=== PATIENT | male | born 1955 | race African-American/Black ===

== ENCOUNTER 2021-08-07 19:11 | Inpatient (IN) | payer MEDICARE, OTHER ==
[2021-08-07 21:28] LABS: Appearance,Urine Clear (Clear); Bilirubin,Urine Negative (Negative); Blood,Urine Negative (Negative); Color,Urine Yellow; Glucose,Urine (UA) Negative (Negative); Ketones,Urine Negative (Negative); Leukocyte Esterase,Urine Negative (Negative); Nitrite,Urine Negative (Negative); Protein,Urine Negative (Negative); Specific Gravity,Urine 1.018 (1.001-1.035); Urobilinogen,Urine <2.0 mg/dL (<2.0)
[2021-08-07] MEDS ORDERED: SODIUM CHLORIDE 0.9% 1,000 ML IV STA (21:43)
[2021-08-07 23:15] LABS: Basophils % (A) 1 %; Eosinophils # (A) 0.2 k/uL (0-0.7); Eosinophils % (A) 3 %; HGB 12.6 gm/dL (13.0-17.5); Lymphocytes # (A) 1.5 k/uL (1.0-4.8); Lymphocytes % (A) 28 %; MCH 29.9 pg (25.0-35.0); MCHC 31.5 g/dL (31.0-37.0); MCV 95.1 fL (80.0-100.0); Mean Platelet Volume 9.9; Monocytes # (A) 0.3 k/uL (0-1.0); Monocytes % (A) 6 %; Neutrophils # (A) 3.1 k/uL (1.3-7.7); Neutrophils % (A) 59 %; Platelet Count 138 k/uL (150-450); WBC 5.3 k/uL (3.8-10.6)
[2021-08-07 23:33] LABS: Albumin 4.2 g/dL (3.5-5.0); Calcium 9.7 mg/dL (8.4-10.2); Magnesium 2.3 mg/dL (1.6-2.3); Potassium 4.9 mmol/L (3.5-5.1); Total Bilirubin 0.9 mg/dL (0.2-1.3); Total Protein 7.5 g/dL (6.3-8.2)
--- NOTE | 2021-08-08 00:28 | ED ---
General Adult HPI - General Chief complaint: Dizziness Stated complaint: Dizziness Time Seen by Provider: 08/07/21 21:09 Source: patient Mode of arrival: EMS - History of Present Illness Initial comments: 66 year-old male patient presents for evaluation of dizziness and near passing out. 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 States today he was going up the stairs when he became very dizzy and nearly passed out. He denies any headache, blurred vision, double vision. Denies any nausea or vomiting. Denies chest pain or shortness of breath. Denies numbness, tingling, weakness to his extremities. Denies history of similar symptoms. States he does have history of hypertension that he has not had any blood pressure medication since arriving at the facility. Patient denies any recent rash, fever, chills, cough, abdominal pain, nausea, vomiting, diarrhea, constipation, back pain, hematuria, dysuria, urinary urgency, urinary frequency, or any other complaints. - Related Data Allergies Allergy/AdvReac Type Severity Reaction Status Date / Time No Known Allergies Allergy Verified 08/07/21 20:08 Review of Systems ROS Statement: Those systems with pertinent positive or pertinent negative responses have been documented in the HPI. ROS Other: All systems not noted in ROS Statement are negative. Past Medical History Past Medical History: Asthma, CVA/TIA, Hypertension History of Any Multi-Drug Resistant Organisms: None Reported Past Psychological History: No Psychological Hx Reported Smoking Status: Current every day smoker Past Alcohol Use History: Rare Past Drug Use History: Heroin General Exam General appearance: alert, in no apparent distress, other (This is a well- developed, well-nourished adult male patient in no acute distress.) Eye exam: Present: normal appearance, PERRL, EOMI. Absent: scleral icterus, conjunctival injection, periorbital swelling ENT exam: Present: normal exam, normal oropharynx, mucous membranes moist Respiratory exam: Present: normal lung sounds bilaterally. Absent: respiratory distress, wheezes, rales, rhonchi, stridor Cardiovascular Exam: Present: normal rhythm, bradycardia, normal heart sounds. Absent: systolic murmur, diastolic murmur, rubs, gallop, clicks GI/Abdominal exam: Present: soft, normal bowel sounds. Absent: distended, tenderness, guarding, rebound, rigid Neurological exam: Present: alert, oriented X3, CN II-XII intact Psychiatric exam: Present: normal affect, normal mood Skin exam: Present: warm, dry, intact, normal color. Absent: rash Course Vital Signs 08/07/21 08/07/21 20:57 23:56 Temperature 97.0 F L Pulse Rate 53 L Pulse Rate [ 54 L Lace Weaver ] Respiratory 16 16 Rate Blood Pressure 97/65 Blood Pressure 142/93 [Left Arm Sitting] Blood Pressure 109/75 [Left Arm Standing] Blood Pressure 156/99 [Left Arm Supine] O2 Sat by Pulse 94 L Oximetry EKG Findings - EKG Comments: EKG Findings:: EKG obtained at 2206 is markedly sinus bradycardia with a ventricular to 49, NH interval 194, QRS duration 88, QT 516, QTc 466. No evidence of ST elevation or depression. Medical Decision Making - Medical Decision Making 66-year-old male patient presents to the emergency department today for evaluation of dizziness with near syncope. Parietal vital signs reveal bradycardia and hypotension. Physical examination is unremarkable. He is neurologically intact with no focal deficits. Labs reviewed and did reveal mildly decreased hemoglobin, CO2 32, creatinine 1.31. EKG showed marked sinus bradycardia. He did maintain heart rates in the high 40s low 50s well-healed. He'll be admitted for symptomatic bradycardia further evaluation and monitoring. Cardiology will be consulted. Case discussed with my attending Dr. Ruiz. - Lab Data Result diagrams: 08/07/21 23:04 08/07/21 23:04 Lab Results 08/07/21 08/07/21 08/07/21 Range/Units 20:32 23:04 23:04 WBC 5.3 (3.8-10.6) k/uL RBC 4.20 L (4.30-5.90) m/uL Hgb 12.6 L (13.0-17.5) gm/dL Hct 40.0 (39.0-53.0) % MCV 95.1 (80.0-100.0) fL MCH 29.9 (25.0-35.0) pg MCHC 31.5 (31.0-37.0) g/dL RDW 12.0 (11.5-15.5) % Plt Count 138 L (150-450) k/uL MPV 9.9 Neutrophils % 59 % Lymphocytes % 28 % Monocytes % 6 % Eosinophils % 3 % Basophils % 1 % Neutrophils # 3.1 (1.3-7.7) k/uL Lymphocytes # 1.5 (1.0-4.8) k/uL Monocytes # 0.3 (0-1.0) k/uL Eosinophils # 0.2 (0-0.7) k/uL Basophils # 0.0 (0-0.2) k/uL Sodium 138 (137-145) mmol/L Potassium 4.9 (3.5-5.1) mmol/L Chloride 100 (98-107) mmol/L Carbon Dioxide 32 H (22-30) mmol/L Anion Gap 6 mmol/L BUN 20 (9-20) mg/dL Creatinine 1.31 H (0.66-1.25) mg/dL Est GFR (CKD-EPI)AfAm 65 (>60 ml/min/1.73 sqM) Est GFR (CKD-EPI)NonAf 56 (>60 ml/min/1.73 sqM) Glucose 93 (74-99) mg/dL Plasma Lactic Acid Sanjay (0.7-2.0) mmol/L Calcium 9.7 (8.4-10.2) mg/dL Magnesium 2.3 (1.6-2.3) mg/dL Total Bilirubin 0.9 (0.2-1.3) mg/dL AST 41 (17-59) U/L ALT 39 (4-49) U/L Alkaline Phosphatase 65 (38-126) U/L Troponin I (0.000-0.034) ng/mL Total Protein 7.5 (6.3-8.2) g/dL Albumin 4.2 (3.5-5.0) g/dL Urine Color Yellow Urine Appearance Clear (Clear) Urine pH 6.0 (5.0-8.0) Ur Specific [place] 1.018 (1.001-1.035) Urine Protein Negative (Negative) Urine Glucose (UA) Negative (Negative) Urine Ketones Negative (Negative) Urine Blood Negative (Negative) Urine Nitrite Negative (Negative) Urine Bilirubin Negative (Negative) Urine Urobilinogen <2.0 (<2.0) mg/dL Ur Leukocyte Esterase Negative (Negative) 08/07/21 08/07/21 Range/Units 23:04 23:04 WBC (3.8-10.6) k/uL RBC (4.30-5.90) m/uL Hgb (13.0-17.5) gm/dL Hct (39.0-53.0) % MCV (80.0-100.0) fL MCH (25.0-35.0) pg MCHC (31.0-37.0) g/dL RDW (11.5-15.5) % Plt Count (150-450) k/uL MPV Neutrophils % % Lymphocytes % % Monocytes % % Eosinophils % % Basophils % % Neutrophils # (1.3-7.7) k/uL Lymphocytes # (1.0-4.8) k/uL Monocytes # (0-1.0) k/uL Eosinophils # (0-0.7) k/uL Basophils # (0-0.2) k/uL Sodium (137-145) mmol/L Potassium (3.5-5.1) mmol/L Chloride (98-107) mmol/L Carbon Dioxide (22-30) mmol/L Anion Gap mmol/L BUN (9-20) mg/dL Creatinine (0.66-1.25) mg/dL Est GFR (CKD-EPI)AfAm (>60 ml/min/1.73 sqM) Est GFR (CKD-EPI)NonAf (>60 ml/min/1.73 sqM) Glucose (74-99) mg/dL Plasma Lactic Acid Sanjay 1.4 (0.7-2.0) mmol/L Calcium (8.4-10.2) mg/dL Magnesium (1.6-2.3) mg/dL Total Bilirubin (0.2-1.3) mg/dL AST (17-59) U/L ALT (4-49) U/L Alkaline Phosphatase (38-126) U/L Troponin I <0.012 (0.000-0.034) ng/mL Total Protein (6.3-8.2) g/dL Albumin (3.5-5.0) g/dL Urine Color Urine Appearance (Clear) Urine pH (5.0-8.0) Ur Specific [place] (1.001-1.035) Urine Protein (Negative) Urine Glucose (UA) (Negative) Urine Ketones (Negative) Urine Blood (Negative) Urine Nitrite (Negative) Urine Bilirubin (Negative) Urine Urobilinogen (<2.0) mg/dL Ur Leukocyte Esterase (Negative) Disposition Clinical Impression: Symptomatic bradycardia, Near syncope Disposition: ADMITTED IP TO THIS [facility] Condition: Serious Referrals: None,Stated [Primary Care Provider] - 1-2 days Decision to Admit Reason: Admit from EC Decision Date: 08/08/21 Decision Time: 00:40
[2021-08-08] MEDS ORDERED: NALOXONE 0.4 MG/ML 1 ML VIAL IV PRN (00:38)
--- NOTE | 2021-08-08 09:22 | XR ---
EXAMINATION TYPE: XR chest 2V DATE OF EXAM: 08/08/2021 COMPARISON: None HISTORY: Dizziness TECHNIQUE: Frontal and lateral views of the chest are obtained. FINDINGS: There is no focal air space opacity, pleural effusion, or pneumothorax seen. The cardiac silhouette size is within normal limits. The osseous structures are intact. IMPRESSION: No acute cardiopulmonary process.
[2021-08-08] MEDS ORDERED: LORazepam 2 MG/ML INJ IV PRN ×3 (10:09)
[2021-08-08] MEDS: HEPARIN SODIUM,PORCINE/PF 5,000 UNIT/0.5 ML SYRINGE SQ SCH ×2 (10:21→20:40)
[2021-08-08] MEDS: THIAMINE 100 MG TAB PO SCH (10:21)
[2021-08-08] MEDS: FAMOTIDINE 20 MG/2 ML VIAL IV SCH ×2 (10:22→20:14)
[2021-08-08] MEDS: NICOTINE 14MG/24HR PATCH TRANSDERM SCH (10:22)
[2021-08-08] MEDS: SODIUM CHLORIDE 0.9% 1,000 ML IV SCH ×2 (10:22→21:56)
[2021-08-08] MEDS ORDERED: DOCUSATE 100 MG CAP PO PRN (13:38)
--- NOTE | 2021-08-08 13:40 | P.HPIM ---
History of Present Illness This is a pleasant 66 years old male with past medical history of Asthma, CVA/TIA, Hypertension Yesterday after he woke up trying to get to the restroom he felt dizzy about the passing out, no sensation of room spinning. No syncope. No chest pain or dyspnea. However patient complaining of from cough and phlegm which is green-yellow in color for several months now. Also he is complaining of from constipation. He is voiding more frequently but denies dysuria. Also is complaining of from headache 8/10 for the last 2 days, it is frontal headache. Associated with the total weakness in the left upper extremity for the last 2 months. Also patient has history of stroke Patient smokes about 3 cigarettes per day, used to smoke more but is trying to cut down. Patient is counseled to quit and he agrees. He drinks about 6 packs of beer every day as he states. Also he inject her when in his right forearm last time was about 16-17 days ago. Vitals showing bradycardia with heart rate 48-57. Blood pressure is 139/87 however as Lei understanding down to 190/75. Labs show an unremarkable CBC, BMP and liver enzymes and troponin except for mildly elevated creatinine at 1.3. Urine analysis is not suspicious for infection and coronavirus not detected. EKG showing marked bradycardia at [address]-T changes and QTC is 466. chest x-ray: No acute process Review of Systems CONSTITUTIONAL: No fever, no malaise, no fatigue. HEENT: No recent visual problems or hearing problems. Denied any sore throat. CARDIOVASCULAR: No orthopnea, PND, no palpitations, no syncope. PULMONARY: No shortness of breath, no cough, no hemoptysis. GASTROINTESTINAL: No diarrhea, no nausea, no vomiting, no abdominal pain. Normoactive bowel sounds. NEUROLOGICAL: No headaches, no weakness, no numbness. HEMATOLOGICAL: Denies any bleeding or petechiae. GENITOURINARY: Denies any burning micturition, frequency, or urgency. MUSCULOSKELETAL/RHEUMATOLOGICAL: Denies any joint pain, swelling, or any muscle pain. ENDOCRINE: Denies any polyuria or polydipsia. Past Medical History Past Medical History: Asthma, CVA/TIA, Hypertension History of Any Multi-Drug Resistant Organisms: None Reported Past Psychological History: No Psychological Hx Reported Smoking Status: Current every day smoker Past Alcohol Use History: Rare Past Drug Use History: Heroin Medications and Allergies Home Medications Medication Instructions Recorded Confirmed Type Docusate [Colace] 100 mg PO BID PRN 08/08/21 08/08/21 History Lidocaine 5% Cream 1 applic TOPICAL BID PRN 08/08/21 08/08/21 History Naloxone HCl [Narcan] 4 mg NASAL ONCE PRN 08/08/21 08/08/21 History Naproxen 500 mg PO BID PRN 08/08/21 08/08/21 History oxyCODONE-APAP 10-325MG [Percocet 1 tab PO Q8HR PRN 08/08/21 08/08/21 History 10-325 mg] Allergies Allergy/AdvReac Type Severity Reaction Status Date / Time No Known Allergies Allergy Verified 08/08/21 09:35 Physical Exam Vitals: Vital Signs Temp Pulse Pulse Resp BP BP BP 08/08/21 04:50 57 L 18 139/87 08/08/21 01:19 48 L 08/07/21 23:56 54 L 16 142/93 109/75 08/07/21 20:57 97.0 F L 53 L 16 97/65 BP Pulse Ox 08/08/21 04:50 97 08/08/21 01:19 08/07/21 23:56 156/99 08/07/21 20:57 94 L Intake and Output 08/07/21 08/08/21 08/08/21 22:59 06:59 14:59 Other: Weight 70.307 kg GENERAL: The patient is alert and oriented x3, not in any acute distress. Well developed, well nourished. HEENT: Pupils are round and equally reacting to light. EOMI. No scleral icterus. No conjunctival pallor. Normocephalic, atraumatic. No pharyngeal erythema. No thyromegaly. CARDIOVASCULAR: S1 and S2 present. No murmurs, rubs, or gallops. PULMONARY: Chest is clear to auscultation, no wheezing or crackles. ABDOMEN: Soft, nontender, nondistended, normoactive bowel sounds. No palpable organomegaly. MUSCULOSKELETAL: No joint swelling or deformity. EXTREMITIES: No cyanosis, clubbing, or pedal edema. NEUROLOGICAL: Gross neurological examination did not reveal any focal deficits. SKIN: No rashes. No petechiae Results CBC & Chem 7: 08/07/21 23:04 08/07/21 23:04 Labs: Abnormal Lab Results - Last 24 Hours (Table) 08/07/21 08/07/21 Range/Units 23:04 23:04 RBC 4.20 L (4.30-5.90) m/uL Hgb 12.6 L (13.0-17.5) gm/dL Plt Count 138 L (150-450) k/uL Carbon Dioxide 32 H (22-30) mmol/L Creatinine 1.31 H (0.66-1.25) mg/dL Assessment and Plan Assessment: Symptomatic bradycardia with dizziness and heart rate dropped down to 40s and 50s. Presyncope secondary to postural hypotension Left upper extremity weakness for 2 months Acute kidney injury, most likely prerenal Dehydration Heroine abuse Alcohol abuse at-risk of alcohol withdrawal Nicotine dependence History of asthma, not an active issue History of hypertension History of CVA/TIA Plan: This is a pleasant 66 years old male who presents with bradycardia, postural hypotension and dizziness. Continue with IV fluids Monitor creatinine. Continue with telemetry. Cardiology consult Start the patient on CIWA protocol, thiamine, nicotine patch Check urine analysis Labs and medication were reviewed.. Continue same treatment. Continue with symptomatic treatment. Resume home medication. Monitor lytes and vitals. DVT and GI prophylaxis. Further recommendations depends on the clinical course of the patient DVT prophylaxis: Subcutaneous heparin GI Prophylaxis: Pepcid PT/OT: Pending Prognosis is guarded
[2021-08-08 14:12] LABS: Appearance,Urine Clear (Clear); Bilirubin,Urine Negative (Negative); Blood,Urine Negative (Negative); Color,Urine Light Yellow; Glucose,Urine (UA) Negative (Negative); Ketones,Urine Negative (Negative); Leukocyte Esterase,Urine Negative (Negative); Nitrite,Urine Negative (Negative); PH, Urine 6.5 (5.0-8.0); Protein,Urine Negative (Negative); Specific Gravity,Urine 1.008 (1.001-1.035); Urobilinogen,Urine <2.0 mg/dL (<2.0)
--- NOTE | 2021-08-08 15:51 | P.CRDCN ---
History of Present Illness History of present illness: HISTORY OF PRESENTING ILLNESS This is a pleasant 66-year-old with past medical history significant for Asthma, CVA, heroin abuse, tobacco abuse, reported hypertension however not on any medi cations who presents secondary to episode of lightheadedness. Patient apparently has been at rehab for heroin abuse and had been doing fairly well however yesterday started having an episode where he felt lightheaded and dizzy like he was given passout. He states episode lasted for an hour to and then slowly resolved. Today he states he feels fine. Initial workup showed bradycardia in the 40s to 50s. He denies any prior history of anything similar denies any history of syncope. Denies any chest pain, pressure or tightness. He has not had prior cardiac workup in the past. Initial EKG showed sinus bradycardia with a heart rate 49 bpm without any significant ST or T wave abnormalities. Blood work showed white blood cell count 5.3, hemoglobin 12.6, platelets 138, BUN 20, creatinine 1.3, troponin less than 0.012. Initial vital signs blood pressure 97/65 with a heart rate of 53 bpm. REVIEW OF SYSTEMS At the time of my exam: CONSTITUTIONAL: Denies fever or chills. CARDIOVASCULAR: Denies chest pain, shortness of breath, orthopnea, PND or palpitations. RESPIRATORY: Denies cough. GASTROINTESTINAL: Denies abdominal pain, diarrhea, constipation, nausea or vomiting. MUSCULOSKELETAL: Denies myalgias. NEUROLOGIC: Denies numbness, tingling or weakness. ENDOCRINE: Denies fatigue, weight change, polydipsia or polyurina. GENITOURINARY: Denies burning, hematuria or urgency with micturation. HEMATOLOGIC: Denies history of anemia or bleeding. PHYSICAL EXAMINATION Vital signs reviewed. CONSTITUTIONAL: No apparent distress. HEENT: Head is normocephalic. Pupils are equal, round. Sclerae anicteric. Mucous membranes of the mouth are moist. No JVD. No carotid bruit. CHEST EXAMINATION: Lungs are clear to auscultation. No chest wall tenderness is noted on palpation or with deep breathing. +mild wheeze HEART EXAMINATION: Regular rate and rhythm. S1, S2 heard. No murmurs, gallops or rub. ABDOMEN: Soft, nontender. Positive bowel sounds. EXTREMITIES: 2+ peripheral pulses, no lower extremity edema and no calf tenderness. NEUROLOGIC EXAMINATION: Patient is awake, alert and oriented x3. ASSESSMENT 1. Near syncope of unclear etiology, unclear is actually symptomatic from his sinus bradycardia 2. Sinus bradycardia 3. History of heroin abuse, last use 16-17 days. No stigmata or signs or symptoms of endocarditis 4. History of tobacco abuse 5. History of alcohol abuse 6. COPD 7. History of stroke PLAN Patient with a near syncopal episode however blood pressure somewhat borderline to begin with and may be more of a hypotension issue rather than related to bradycardia. He has been intermittently mildly bradycardic however no significant pauses noted. Check 2-D echo. Continue to monitor on telemetry for minimum of 24 hours. No current indication for permanent pacemaker especially in this gentleman with history of IV drug abuse. Further recommendations follow. Past Medical History Past Medical History: Asthma, CVA/TIA, Hypertension Additional Past Medical History / Comment(s): arthritis. History of Any Multi-Drug Resistant Organisms: None Reported Past Surgical History: No Surgical Hx Reported Past Anesthesia/Blood Transfusion Reactions: No Reported Reaction Past Psychological History: No Psychological Hx Reported Smoking Status: Current every day smoker Past Alcohol Use History: Rare Past Drug Use History: Heroin Medications and Allergies Home Medications Medication Instructions Recorded Confirmed Type Docusate [Colace] 100 mg PO BID PRN 08/08/21 08/08/21 History Lidocaine 5% Cream 1 applic TOPICAL BID PRN 08/08/21 08/08/21 History Naloxone HCl [Narcan] 4 mg NASAL ONCE PRN 08/08/21 08/08/21 History Naproxen 500 mg PO BID PRN 08/08/21 08/08/21 History oxyCODONE-APAP 10-325MG [Percocet 1 tab PO Q8HR PRN 08/08/21 08/08/21 History 10-325 mg] Allergies Allergy/AdvReac Type Severity Reaction Status Date / Time No Known Allergies Allergy Verified 08/08/21 09:35 Physical Exam Vitals: Vital Signs Temp Pulse Pulse Resp BP BP BP 08/08/21 04:50 57 L 18 139/87 08/08/21 01:19 48 L 08/07/21 23:56 54 L 16 142/93 109/75 08/07/21 20:57 97.0 F L 53 L 16 97/65 BP Pulse Ox 08/08/21 04:50 97 08/08/21 01:19 08/07/21 23:56 156/99 08/07/21 20:57 94 L Intake and Output 08/08/21 08/08/21 08/08/21 06:59 14:59 22:59 Intake Total 400 Output Total 450 Balance -50 Intake: Oral 400 Output: Urine 450 Other: Weight 70.307 kg Results 08/07/21 23:04 08/07/21 23:04 Cardiac Enzymes 08/07/21 08/07/21 Range/Units 23:04 23:04 AST 41 (17-59) U/L Troponin I <0.012 (0.000-0.034) ng/mL CBC 08/07/21 Range/Units 23:04 WBC 5.3 (3.8-10.6) k/uL RBC 4.20 L (4.30-5.90) m/uL Hgb 12.6 L (13.0-17.5) gm/dL Hct 40.0 (39.0-53.0) % Plt Count 138 L (150-450) k/uL Comprehensive Metabolic Panel 08/07/21 Range/Units 23:04 Sodium 138 (137-145) mmol/L Potassium 4.9 (3.5-5.1) mmol/L Chloride 100 (98-107) mmol/L Carbon Dioxide 32 H (22-30) mmol/L BUN 20 (9-20) mg/dL Creatinine 1.31 H (0.66-1.25) mg/dL Glucose 93 (74-99) mg/dL Calcium 9.7 (8.4-10.2) mg/dL AST 41 (17-59) U/L ALT 39 (4-49) U/L Alkaline Phosphatase 65 (38-126) U/L Total Protein 7.5 (6.3-8.2) g/dL Albumin 4.2 (3.5-5.0) g/dL Current Medications Generic Name Dose Route Start Last Admin Trade Name Freq PRN Reason Stop Dose Admin Docusate Sodium 100 mg 08/08/21 13:38 Docusate 100 Mg Cap PO BID PRN Constipation Famotidine 20 mg 08/08/21 09:00 08/08/21 10:22 Famotidine 20 Mg/2 Ml Vial IV 20 mg Q12HR SAGE Administration Heparin Sodium (Porcine) 5,000 unit 08/08/21 09:00 08/08/21 10:21 Heparin Sodium,Porcine/Pf 5,000 Unit/0.5 Ml Syringe SQ 5,000 unit Q12HR SAGE Administration Sodium Chloride 1,000 mls @ 75 mls/hr 08/08/21 08:45 08/08/21 10:22 Saline 0.9% IV 75 mls/hr .[id number] SAGE Administration Lorazepam 1 mg 08/08/21 10:09 Lorazepam 2 Mg/Ml Inj IV Q2HR PRN CIWA 8 or 9 Lorazepam 1 mg 08/08/21 10:09 Lorazepam 2 Mg/Ml Inj IV Q1HR PRN CIWA 10 to 15 Lorazepam 2 mg 08/08/21 10:09 Lorazepam 2 Mg/Ml Inj IV 08/10/21 10:09 Q10M PRN CIWA 16 or higher Naloxone HCl 0.2 mg 08/08/21 00:38 Naloxone 0.4 Mg/Ml 1 Ml Vial IV Q2M PRN Opioid Reversal Nicotine 1 patch 08/08/21 10:15 08/08/21 10:22 Nicotine 14mg/24hr Patch TRANSDERM 1 patch DAILY SAGE Administration Thiamine HCl 100 mg 08/08/21 10:15 08/08/21 10:21 Thiamine 100 Mg Tab PO 100 mg DAILY SAGE Administration Intake and Output 08/08/21 08/08/21 08/08/21 06:59 14:59 22:59 Intake Total 400 Output Total 450 Balance -50 Intake: Oral 400 Output: Urine 450 Other: Weight 70.307 kg Patient Weight 08/09/21 05:59 Weight 70.307 kg 08/07/21 23:04 08/07/21 23:04
--- NOTE | 2021-08-08 20:24 | P.CNNES ---
History of Present Illness Consult date: 08/08/21 Reason for Consult: left-sided weakness and dizziness History of Present Illness: The patient is a 66-year-old -[place] male who is seen in neurologic consultation on August 08, 2021, via telemedicine. History is obtained from the chart and from the patient. In reviewing the history and physical, the patient reportedly complained of left upper extremity weakness, present for a couple months. When trying to obtain a history of from the patient, he reports a sore feeling in his left leg. He says his leg has been sore for years. He also reports soreness in his right leg because of using it for the injecting of IV drugs. Patient describes his episode of dizziness that brought him into the hospital. This story is consistent with the history and physical and the cardiology consultation. The patient denies weakness in his upper extremities. He reports that prior to his symptoms beginning a couple days ago, he had no difficulty walking. The patient denies headache and chest pain. He does report shortness of breath. Patient denies neck pain and back pain. Patient denies difficulty with speech and swallowing. There is no change in vision. The patient does report having had a stroke, proximally 10-15 years ago. Past Medical History Past Medical History: Asthma, CVA/TIA, Hypertension Additional Past Medical History / Comment(s): arthritis. History of Any Multi-Drug Resistant Organisms: None Reported Past Surgical History: No Surgical Hx Reported Past Anesthesia/Blood Transfusion Reactions: No Reported Reaction Past Psychological History: No Psychological Hx Reported Smoking Status: Current every day smoker Past Alcohol Use History: Rare Past Drug Use History: Heroin Medications and Allergies Home Medications Medication Instructions Recorded Confirmed Type Docusate [Colace] 100 mg PO BID PRN 08/08/21 08/08/21 History Lidocaine 5% Cream 1 applic TOPICAL BID PRN 08/08/21 08/08/21 History Naloxone HCl [Narcan] 4 mg NASAL ONCE PRN 08/08/21 08/08/21 History Naproxen 500 mg PO BID PRN 08/08/21 08/08/21 History oxyCODONE-APAP 10-325MG [Percocet 1 tab PO Q8HR PRN 08/08/21 08/08/21 History 10-325 mg] Allergies Allergy/AdvReac Type Severity Reaction Status Date / Time No Known Allergies Allergy Verified 08/08/21 09:35 Physical Examination - Vital Signs Vital Signs: Vital Signs Temp Pulse Pulse Resp BP BP BP 08/08/21 04:50 57 L 18 139/87 08/08/21 01:19 48 L 08/07/21 23:56 54 L 16 142/93 109/75 08/07/21 20:57 97.0 F L 53 L 16 97/65 BP Pulse Ox 08/08/21 04:50 97 08/08/21 01:19 08/07/21 23:56 156/99 08/07/21 20:57 94 L Intake and Output 08/08/21 08/08/21 08/08/21 06:59 14:59 22:59 Intake Total 400 Output Total 450 Balance -50 Intake: Oral 400 Output: Urine 450 Other: Weight 70.307 kg Gen.: The patient is initially sitting on the edge of the gurney. He is well- nourished, well-developed and in no acute distress. He is able to move himself onto the gurney, for the neurological examination. HEENT: Head is atraumatic, normocephalic. Fundus not visualized. There is no scleral icterus. Mucous membranes are moist. Neck: Supple without carotid bruits Heart: Regular rate and rhythm Extremities: Without edema Neurological examination Mental status: The patient is awake, alert and oriented 3. His speech is clear. There is no dysarthria or aphasia. Cranial nerves: Pupils are equal at 2 mm and reactive. Visual cuevas are full to confrontation. Extraocular movements are intact. There is no nystagmus. Facial sensation is reportedly diminished in the right V2 distribution. There is no facial asymmetry. Hearing is grossly intact. Uvula and palate are midline. Shoulder shrug is symmetric. Tongue protrudes midline. Motor: Strength in the bilateral upper extremities is 5/5. Left hip flexor 4- /5. Right hip flexor 4/5, when reclining in the bed with legs outstretched. When seated on the edge of the bed, hip flexor strength is improved. While seated on the edge of the bed, hamstring strength is 5/5. Ankle plantar and dorsiflexors 5/5. Sensation: The patient reports a decrease in touch sensation to the right upper and lower extremities. Deep tendon reflexes: 2+/4+ at the bilateral brachioradialis reflexes. Biceps and patellar reflexes 1+/4+. Coordination: Finger to nose and rapid alternating movements are intact. Gait: Within normal limits. The patient's gait is steady there is no evidence of weakness of either extremity. The patient is observed to have decreased left arm swing. Results - Laboratory Findings CBC and BMP: 08/07/21 23:04 08/07/21 23:04 Abnormal Lab Findings: Abnormal Labs 08/07/21 08/07/21 23:04 23:04 RBC 4.20 L Hgb 12.6 L Plt Count 138 L Carbon Dioxide 32 H Creatinine 1.31 H Assessment and Plan Assessment: 1. Inconsistent history regarding weakness of the extremities. Neurological examination reveals bilateral, inconsistent, proximal lower extremity weakness, without pathologic reflexes or sensory level-? Validity of examination 2. Symptomatic bradycardia 3. Reported history of stroke Plan: 1. We will recheck neurological examination/strength testing tomorrow 2. If weakness continues for consider imaging of the thoracic/lumbar spines 3. Physical therapy evaluation for weakness Time with Patient: Greater than 30 (spent 40 minutes with patient via telemedicine)
[2021-08-09] MEDS ORDERED: diazePAM 2 MG TAB PO STA (09:49)
--- NOTE | 2021-08-09 09:53 | P.PN ---
Subjective This is a pleasant 66 years old male with past medical history of Asthma, CVA/TIA, Hypertension Yesterday after he woke up trying to get to the restroom he felt dizzy about the passing out, no sensation of room spinning. No syncope. No chest pain or dyspnea. However patient complaining of from cough and phlegm which is green-yellow in color for several months now. Also he is complaining of from constipation. He is voiding more frequently but denies dysuria. Also is complaining of from headache 8/10 for the last 2 days, it is frontal headache. Associated with the total weakness in the left upper extremity for the last 2 months. Also patient has history of stroke Patient smokes about 3 cigarettes per day, used to smoke more but is trying to cut down. Patient is counseled to quit and he agrees. He drinks about 6 packs of beer every day as he states. Also he inject her when in his right forearm last time was about 16-17 days ago. Vitals showing bradycardia with heart rate 48-57. Blood pressure is 139/87 however as Lei understanding down to 190/75. Labs show an unremarkable CBC, BMP and liver enzymes and troponin except for mildly elevated creatinine at 1.3. Urine analysis is not suspicious for infection and coronavirus not detected. EKG showing marked bradycardia at [address]-T changes and QTC is 466. chest x-ray: No acute process 08/09/2021 Patient with no more dizziness or vertigo this morning, his weakness in extremities feels better besides neurologist will reexamine him today. No sensory loss. No chest pain or nausea vomiting or diarrhea. However he is feeling generally weak and yawning a lot that he complains about it and he feels anxious most likely due to and related related to his heroine withdrawal. We'll give him 1 time dose of Valium. Also he is on CIWA protocol, however his escort is 0-1 yesterday. He is hemodynamically stable. Repeat creatinine of 1.3 yesterday is a still pending. Heart rate is better today 56-58 this morning. Echocardiogram is still pending. Patient remains on thiamine, also he should be on normal saline but it wasn't running this morning and I informed the nurse to restarted. Also discussed with the bedside nurse to recheck his orthostatic vitals which is pending as well. Patient has been evaluated by neurologist with a going to follow up with him today and reexamine him to make sure he has no more weakness in his extremities. Impregnating Machine Operator recommended patient is not a good candidate for pacemaker since his heroine abuse or however his symptoms improving as well as his heart rate. Objective - Vital Signs Vital signs: Vital Signs Temp 97.9 F 08/09/21 08:00 Pulse 58 L 08/09/21 08:00 Resp 18 08/09/21 08:00 BP 145/84 08/09/21 08:00 Pulse Ox 97 08/09/21 08:00 Intake & Output 08/08/21 08/09/21 08/09/21 19:59 06:59 18:59 Intake Total 360 Output Total Balance 360 Weight Intake: Oral 360 Output: Urine Other: Voiding Method # Voids - Exam GENERAL: The patient is alert and oriented x3, not in any acute distress. Well developed, well nourished. HEENT: Pupils are round and equally reacting to light. EOMI. No scleral icterus. No conjunctival pallor. Normocephalic, atraumatic. No pharyngeal erythema. No thyromegaly. CARDIOVASCULAR: S1 and S2 present. No murmurs, rubs, or gallops. PULMONARY: Chest is clear to auscultation, no wheezing or crackles. ABDOMEN: Soft, nontender, nondistended, normoactive bowel sounds. No palpable organomegaly. MUSCULOSKELETAL: No joint swelling or deformity. EXTREMITIES: No cyanosis, clubbing, or pedal edema. NEUROLOGICAL: Gross neurological examination did not reveal any focal deficits. SKIN: No rashes. no petechiae. - Labs CBC & Chem 7: 08/07/21 23:04 08/07/21 23:04 Assessment and Plan Assessment: Symptomatic bradycardia with dizziness and heart rate dropped down to 40s and 50s. Presyncope secondary to postural hypotension Left upper extremity weakness for 2 months. Improvement Acute kidney injury, most likely prerenal Dehydration Heroine abuse Alcohol abuse at-risk of alcohol withdrawal Nicotine dependence History of asthma, not an active issue History of hypertension History of CVA/TIA Plan: This is a pleasant 66 years old male who presents with bradycardia, postural hypotension and dizziness. Continue with IV fluids Monitor creatinine. Continue with telemetry. Cardiology consult Start the patient on CIWA protocol, thiamine, nicotine patch Neurologist on the case Patient is counseled to quit substances including alcohol and her weaning. workers compensation claims supervisor consult Labs and medication were reviewed.. Continue same treatment. Continue with symptomatic treatment. Resume home medication. Monitor lytes and vitals. DVT and GI prophylaxis. Further recommendations depends on the clinical course of the patient DVT prophylaxis: Subcutaneous heparin GI Prophylaxis: Pepcid PT/OT: Pending Prognosis is guarded
[2021-08-09] MEDS: HEPARIN SODIUM,PORCINE/PF 5,000 UNIT/0.5 ML SYRINGE SQ SCH ×3 (10:05→19:42)
[2021-08-09] MEDS: NICOTINE 14MG/24HR PATCH TRANSDERM SCH (10:05)
[2021-08-09] MEDS: FAMOTIDINE 20 MG TAB PO SCH ×2 (10:05→19:43)
[2021-08-09] MEDS: THIAMINE 100 MG TAB PO SCH (10:05)
[2021-08-09 10:40] LABS: Calcium 9.9 mg/dL (8.4-10.2); Magnesium 2.2 mg/dL (1.6-2.3); Potassium 4.9 mmol/L (3.5-5.1)
--- NOTE | 2021-08-09 15:46 | P.PN ---
Subjective HISTORY OF PRESENTING ILLNESS This is a pleasant 66-year-old with past medical history significant for Asthma, CVA, heroin abuse, tobacco abuse, reported hypertension however not on any medications who presents secondary to episode of lightheadedness. Patient apparently has been at rehab for heroin abuse and had been doing fairly well however yesterday started having an episode where he felt lightheaded and dizzy like he was given passout. He states episode lasted for an hour to and then slowly resolved. Today he states he feels fine. Initial workup showed bradycardia in the 40s to 50s. He denies any prior history of anything similar denies any history of syncope. Denies any chest pain, pressure or tightness. He has not had prior cardiac workup in the past. Initial EKG showed sinus bradycardia with a heart rate 49 bpm without any significant ST or T wave abnormalities. Blood work showed white blood cell count 5.3, hemoglobin 12.6, platelets 138, BUN 20, creatinine 1.3, troponin less than 0.012. Initial vital signs blood pressure 97/65 with a heart rate of 53 bpm. 08/09 Patient seen and examined. Patient states he has been walking to the bathroom without any difficulty. No further episodes of lightheadedness. Denies any chest pain or pressure. Denies any shortness breath. PHYSICAL EXAMINATION Vital signs reviewed. CONSTITUTIONAL: No apparent distress. HEENT: Head is normocephalic. Pupils are equal, round. Sclerae anicteric. Mucous membranes of the mouth are moist. No JVD. No carotid bruit. CHEST EXAMINATION: Lungs are clear to auscultation. No chest wall tenderness is noted on palpation or with deep breathing. +mild wheeze HEART EXAMINATION: Regular rate and rhythm. S1, S2 heard. No murmurs, gallops or rub. ABDOMEN: Soft, nontender. Positive bowel sounds. EXTREMITIES: 2+ peripheral pulses, no lower extremity edema and no calf tenderness. NEUROLOGIC EXAMINATION: Patient is awake, alert and oriented x3. ASSESSMENT 1. Near syncope of unclear etiology, unclear is actually symptomatic from his sinus bradycardia 2. Sinus bradycardia 3. History of heroin abuse, last use 16-17 days. No stigmata or signs or symptoms of endocarditis 4. History of tobacco abuse 5. History of alcohol abuse 6. COPD 7. History of stroke PLAN Patient with a near syncopal episode however blood pressure somewhat borderline to begin with and may be more of a hypotension issue rather than related to bradycardia. Telemetry reviewed with sinus bradycardia predominantly 50s up to 60s however no significant pauses greater than 2 seconds, no indication for permanent pacemaker. Check 2-D echo tomorrow. If echo unrevealing patient may be discharged home tomorrow. Would recommend a 2 week event monitor going home. Objective - Vital Signs Vital signs: Vital Signs Temp 98.1 F 08/09/21 12:00 Pulse 55 L 08/09/21 14:00 Resp 17 08/09/21 14:00 BP 156/97 08/09/21 12:00 Pulse Ox 98 08/09/21 12:00 Intake & Output 08/08/21 08/09/21 08/09/21 19:59 06:59 18:59 Intake Total 840 Output Total Balance 840 Weight Intake: Oral 840 Output: Urine Other: Voiding Method Urinal # Voids - Labs CBC & Chem 7: 08/07/21 23:04 08/09/21 09:54 Labs: Abnormal Lab Results - Last 24 Hours (Table) 08/09/21 Range/Units 09:54 Sodium 136 L (137-145) mmol/L
--- NOTE | 2021-08-09 16:57 | P.PN ---
Subjective Progress Note Date: 08/09/21 The patient is a 66-year-old male who is seen in neurologic follow-up on August 09, 2021. The patient was seen for the first time yesterday because of concerns regarding left upper extremity weakness. At the time of my initial evaluation, the patient denied weakness in his upper extremities. The patient reported "soreness" in both of his legs. The patient presented to the emergency Department after an episode of syncope. He was seen by cardiology. They have determined that he is not a candidate for pacemaker placement because of his IV heroin use. The patient reports that he is feeling well today. He does not notice any weakness in his extremities. Objective - Vital Signs Vital signs: Vital Signs Temp 98.1 F 08/09/21 12:00 Pulse 55 L 08/09/21 12:00 Resp 17 08/09/21 12:00 BP 156/97 08/09/21 12:00 Pulse Ox 98 08/09/21 12:00 Intake & Output 08/08/21 08/09/21 08/09/21 19:59 06:59 18:59 Intake Total 360 Output Total Balance 360 Weight Intake: Oral 360 Output: Urine Other: Voiding Method Urinal # Voids - Exam Gen.: The patient is seated in the bed. He is well-nourished, well-developed and in no acute distress. HEENT: Head is atraumatic, normocephalic. Fundus not visualized. There is no scleral icterus. Mucous members are moist. Neurological examination Mental status: The patient is awake, alert and oriented 3. His speech is clear. Cranial nerves: 2-12 grossly intact Motor: Strength is 5/5 in all muscle groups tested, upper and lower extremities. - Labs CBC & Chem 7: 08/07/21 23:04 08/09/21 09:54 Labs: Abnormal Lab Results - Last 24 Hours (Table) 08/09/21 Range/Units 09:54 Sodium 136 L (137-145) mmol/L Assessment and Plan Assessment: 1. Inconsistent history regarding weakness of the extremities. Neurological examination reveals 5/5 strength in all muscle groups tested 2. Symptomatic bradycardia 3. Reported history of stroke
[2021-08-09] MEDS: SODIUM CHLORIDE 0.9% 1,000 ML IV SCH (17:22)
[2021-08-09] MEDS ORDERED: LORazepam 1 MG TAB PO PRN (19:15)
[2021-08-10 00:50] VITALS: RESP 16
[2021-08-10] MEDS: SODIUM CHLORIDE 0.9% 1,000 ML IV SCH (02:42)
[2021-08-10] MEDS: HEPARIN SODIUM,PORCINE/PF 5,000 UNIT/0.5 ML SYRINGE SQ SCH (08:02)
[2021-08-10] MEDS: FAMOTIDINE 20 MG TAB PO SCH (08:03)
[2021-08-10] MEDS: NICOTINE 14MG/24HR PATCH TRANSDERM SCH (08:03)
[2021-08-10] MEDS: THIAMINE 100 MG TAB PO SCH (08:03)
--- NOTE | 2021-08-10 09:35 | ECHOF ---
Referral Reason:re: syncope MEASUREMENTS -------- HEIGHT: 152.4 cm WEIGHT: 68.9 kg BP: RVIDd: 2.9 cm (< 3.3) IVSd: 1.1 cm (0.6 - 1.1) LVIDd: 4.3 cm (3.9 - 5.3) LVPWd: 1.8 cm (0.6 - 1.1) IVSs: 1.4 cm LVIDs: 2.8 cm LVPWs: 1.8 cm LAESV Index (A-L): 16.56 ml/m IVSd: 2.7 cm (0.6 - 1.1) Ao Diam: 2.9 cm (2.0 - 3.7) AV Cusp: 1.9 cm (1.5 - 2.6) MV E Mike: 0.32 m/s MV DecT: 277 ms MV A Mike: 0.58 m/s MV E/A Ratio: 0.55 RAP: 5.00 mmHg RVSP: 17.46 mmHg FINDINGS -------- Sinus rhythm. This was a technically good study. The left ventricular size is normal. Left ventricular wall thickness is normal. Overall left vent ricular systolic function is normal with, an EF between 55 - 60 %. The right ventricle is normal in size. Normal LA size by volume 22+/-6 ml/m2. The right atrial size is normal. The aortic valve is trileaflet, and appears structurally normal. No aortic stenosis or regurgitation. The mitral valve is normal. Mild mitral regurgitation is present. The tricuspid valve appears structurally normal. Mild tricuspid regurgitation present. Right vent ricular systolic pressure is normal at < 35 mmHg. There is no pulmonic regurgitation present. The aortic root size is normal. There is no pericardial effusion. CONCLUSIONS -------- 1. Overall left ventricular systolic function is normal with, an EF between 55 - 60 %. 2. Normal LA size by volume 22+/-6 ml/m2. 3. The aortic valve is trileaflet, and appears structurally normal. No aortic stenosis or regurgitati on. 4. Mild mitral regurgitation is present. 5. Mild tricuspid regurgitation present. 6. There is no pericardial effusion. IRON WORKER: Kathleen Aldana RDCS
[2021-08-10 12:17] VITALS: BP 188/89; PULSE 68; TEMP 98.6
--- NOTE | 2021-08-10 13:50 | P.PN ---
Subjective Progress Note Date: 08/10/21 HISTORY OF PRESENTING ILLNESS This is a pleasant 66-year-old with past medical history significant for Asthma, CVA, heroin abuse, tobacco abuse, reported hypertension however not on any medications who presents secondary to episode of lightheadedness. Patient apparently has been at rehab for heroin abuse and had been doing fairly well however yesterday started having an episode where he felt lightheaded and dizzy like he was given passout. He states episode lasted for an hour to and then slowly resolved. Today he states he feels fine. Initial workup showed bradycardia in the 40s to 50s. He denies any prior history of anything similar denies any history of syncope. Denies any chest pain, pressure or tightness. He has not had prior cardiac workup in the past. Initial EKG showed sinus manuel cardia with a heart rate 49 bpm without any significant ST or T wave abnormalities. Blood work showed white blood cell count 5.3, hemoglobin 12.6, platelets 138, BUN 20, creatinine 1.3, troponin less than 0.012. Initial vital signs blood pressure 97/65 with a heart rate of 53 bpm. 08/09 Patient seen and examined. Patient states he has been walking to the bathroom without any difficulty. No further episodes of lightheadedness. Denies any chest pain or pressure. Denies any shortness breath. 08/10/2021 Patient seen and examined at this point the bedside. Patient denies chest pain or pressure. He denies shortness of breath. Telemetry reveals sinus mechanism with heart rate in the 60s. Patient denies any further episodes of dizziness or near syncope. PHYSICAL EXAMINATION Vital signs reviewed. CONSTITUTIONAL: No apparent distress. HEENT: Head is normocephalic. Pupils are equal, round. Sclerae anicteric. Mucous membranes of the mouth are moist. No JVD. No carotid bruit. CHEST EXAMINATION: Lungs are clear to auscultation. No chest wall tenderness is noted on palpation or with deep breathing. HEART EXAMINATION: Regular rate and rhythm. S1, S2 heard. No murmurs, gallops or rub. ABDOMEN: Soft, nontender. Positive bowel sounds. EXTREMITIES: 2+ peripheral pulses, no lower extremity edema and no calf tenderness. NEUROLOGIC EXAMINATION: Patient is awake, alert and oriented x3. ASSESSMENT 1. Near syncope of unclear etiology, unclear is actually symptomatic from his sinus bradycardia 2. Sinus bradycardia 3. History of heroin abuse, last use 16-17 days. No stigmata or signs or symptoms of endocarditis 4. History of tobacco abuse 5. History of alcohol abuse 6. COPD 7. History of stroke PLAN Avoid AV ulises blocking agents No plans for PPM Patient is being discharged to [place]. Per nursing, the patient can not wear an event monitor at [facility]. Patient may be discharged and follow up in the office after he completes his rehab at [place] and obtain an event monitor at that time We will sign off. Please reconsult if needed Nurse practitioner note has been reviewed by physician. Signing provider agrees with the documented findings, assessment, and plan of care. Objective - Vital Signs Vital signs: Vital Signs Temp 98.6 F 08/10/21 12:15 Pulse 68 08/10/21 12:15 Resp 16 08/10/21 12:15 BP 188/89 08/10/21 12:15 Pulse Ox 98 08/10/21 12:15 Intake & Output 08/09/21 08/10/21 08/10/21 18:59 06:59 18:59 Intake Total 1560 240 Output Total 475 Balance 1560 -235 Weight 69.3 kg Intake: Oral 1560 240 Output: Urine 475 Other: Voiding Method Urinal Urinal # Voids 3 2 - Labs CBC & Chem 7: 08/07/21 23:04 08/09/21 09:54
== END 2021-08-10 15:08 | disposition home or self-care (01) | DRG 309 ==
LOC: EC 19:11 → 3SCARD 08-08 03:24
PROVIDERS: ADMIT Internal Medicine; ATTEND Internal Medicine
PROC: HZ2ZZZZ Detoxification Services for Substance Abuse Treatment (ICD-10-PCS; principal; 2021-08-08)
PROC: 05HY33Z Insertion of Infusion Device into Upper Vein, Percutaneous Approach (ICD-10-PCS; 2021-08-10)
DX: R00.1 Bradycardia, unspecified (principal); N17.9 Acute kidney failure, unspecified; F11.13 Opioid abuse with withdrawal; I95.1 Orthostatic hypotension; R53.1 Weakness; Z20.822 Contact with and (suspected) exposure to COVID-19; E86.0 Dehydration; I10 Essential (primary) hypertension; F10.10 Alcohol abuse, uncomplicated; J44.9 Chronic obstructive pulmonary disease, unspecified; K59.00 Constipation, unspecified; F17.210 Nicotine dependence, cigarettes, uncomplicated; Z86.73 Personal history of transient ischemic attack (TIA), and cerebral infarction without residual deficits; Z71.51 Drug abuse counseling and surveillance of drug abuser; Z71.41 Alcohol abuse counseling and surveillance of alcoholic
CPT/HCPCS: 36415; 71046; 80048; 80053; 81003; 83605; 83735; 84484; 85025; 87635; 93005; 93306; 96360; 99285